=== PATIENT | female | born 1935 | race Caucasian/White ===

== ENCOUNTER 2019-05-16 04:23 | Inpatient (IN) ==
--- NOTE | 2019-05-16 04:43 | PROVIDER DOCUMENTATION ---
HPI-Abdominal Pain/GI Problem - General Chief Complaint: Abdominal Pain Stated Complaint: ABD PAIN Time Seen by Provider: 05/16/19 04:41 Source: patient Allergies/Adverse Reactions: Patient Allergies Allergy/AdvReac Type Severity Reaction Status Date / Time amlodipine [From Norvasc] Allergy Unknown Verified 05/16/19 04:45 diazepam [From Valium] Allergy Unknown Verified 05/16/19 04:45 doxycycline Allergy Unknown Verified 05/16/19 04:45 duloxetine [From Cymbalta] Allergy Unknown Verified 05/16/19 04:45 Sulfa (Sulfonamide Allergy Unknown Verified 05/16/19 04:45 Antibiotics) ciprofloxacin [From Cipro] AdvReac VOMITING Verified 05/16/19 04:45 Home Medications: Home Medication List Medication Instructions Recorded Confirmed Last Taken Type Aspirin 81 mg PO QHS 05/29/18 05/16/19 Unknown History Bisacodyl [Dulcolax] 10 mg PO DAILY PRN PRN 05/29/18 05/16/19 Unknown History Docusate Sodium [Colace] 100 mg PO DAILY PRN 05/29/18 05/16/19 Unknown History Hydrocodone Bit/Acetaminophen 1 each PO TID PRN PRN 05/29/18 05/16/19 Unknown History [Hydrocodon-Acetaminophen 5-325] Magnesium Amino Acid Chelate 0 mg PO DAILY 05/29/18 05/16/19 Unknown History [Magnesium] Menthol [Biofreeze] 118 ml TP PRN PRN 05/29/18 05/16/19 Unknown History Metoprolol Succinate E.r. [Toprol 25 mg PO QHS 05/29/18 05/16/19 Unknown History Xl] Multivitamin [Multivitamins] 1 each PO DAILY 05/29/18 05/16/19 Unknown History Nitrofurantoin Macrocrystal 50 mg PO HS PRN 05/29/18 05/16/19 Unknown History [Macrodantin] Omeprazole [Prilosec] 20 mg PO DAILY 05/29/18 05/16/19 Unknown History Potassium Gluconate [Potassium] 200 mg PO HS 05/29/18 05/16/19 Unknown History Phenazopyridine HCl [Azo Urinary 99.5 mg PO Q8H PRN 05/16/19 05/16/19 Unknown History Pain Relief] - History of Present Illness-ABD Nature of Presenting Problems: Presents to the with complaints of RLQ abd pain. She states about 2 weeks ago she was told that she had diverticulitis. She was given cipro and flagyl and took it for about 8 days but stopped 3 days ago because it was making her nause ous. She states that the LUQ pain she had when she was told she had diverticulitis disappeared but tongith she had a sudden onset of RLQ abdominal pain that is stabbing and "rebound". She endorses some non bloody diarrhea and some subjective fevers but states she did not check her temp. She endorses some nausea but states hshe has had the surgery where she cannot vomit. She tried taking a Hydrocodone for pain but that didnt help. She denies any dysuria. She states that her friend was also recently sick with the flu she thinks. Denies any othe rsick contacts. Review of Systems - Adult - REVIEW OF SYSTEMS - ADULT Constitutional: reports: see HPI, chills, fever Eyes: reports: no symptoms reported Ears, Nose, Mouth & Throat: reports: no symptoms reported Cardiovascular: reports: no symptoms reported Respiratory: reports: no symptoms reported Gastrointestinal: reports: see HPI, abdominal pain, diarrhea, nausea. denies: constipation, vomiting Genitourinary: reports: no symptoms reported Musculoskeletal: reports: no symptoms reported Integumentary: reports: no symptoms reported Neurological: reports: no symptoms reported Psychiatric: reports: no symptoms reported Endocrine: reports: no symptoms reported Hematologic/Lymphatic: reports: no symptoms reported Allergic/Immunologic: reports: no symptoms reported All Other Systems: Reviewed and Negative Past History - Adult - PAST MEDICAL HISTORY-ADULT Review of Records: reports: Old Records Reviewed Physical Exam-General - PHYSICAL EXAM-ADULT Initial Vital Signs Reviewed: Yes - CONSTITUTIONAL General Appearance: appears well, alert, no apparent distress, anxious - EYES Eyes: PERRL/EOMI - HEAD, EARS, NOSE, MOUTH & THROAT HENMT: normocephalic/atraumatic, moist mucous membranes - NECK Neck: non-tender, full range of motion, supple, normal inspection - RESPIRATORY Respiratory: chest non-tender, lungs clear, normal breath sounds, no respiratory distress, no accessory muscle use, pain on inspiration - CARDIOVASCULAR Cardiovascular: normal peripheral pulses, regular rate, rhythm, no murmur - GASTROINTESTINAL (ABDOMEN) Abdominal Exam: normal bowel sounds, soft, tenderness (right abdominal pain) - MUSCULOSKELETAL Back Exam: normal inspection, no CVA tenderness, no vertebral tenderness Extremity: normal range of motion, non-tender, normal inspection - SKIN Integumentary: normal color, warm/dry - NEUROLOGIC Neurologic: grossly normal - PSYCHIATRIC Psych/Mental Status: normal mood/affect, oriented x 3 Progress - PLAN OF CARE/RESULTS Progress/Plan/Lab Results: Vital Signs - 8 hr 05/16/19 04:30 Temperature 98.2 F Pulse Rate 78 Respiratory Rate 16 Blood Pressure 149/75 O2 Sat by Pulse Oximetry 96 Orders Category Date Time Status CT ABD/PELVIS W/IV CONT ONLY [CT] Stat Exams 05/16/19 04:41 Ordered CBC WITH ELECTRONIC DIFF [HEME] Stat Lab 05/16/19 04:41 Uncollected COMPREHENSIVE METABOLIC PANEL [CHEM] Stat Lab 05/16/19 04:41 Uncollected LIPASE [CHEM] Stat Lab 05/16/19 04:41 Uncollected URINALYSIS W/POSS RFLX CULT [URINALYSIS] Stat Lab 05/16/19 04:41 Uncollected 0653: Dr Bryant in the ED to see patient. Accepts patient for admission. Further orders to be placed by him. Result Diagrams: 05/16/19 04:35 05/16/19 04:35 - CT/MRI 1 CT Study: Abdomen (Acute appendicitis) - CONSULTS/PCP/HOSPITALIST Notification #1 *Consult/PCP/Hospitalist*: Dr Bryant Time Discussed: 06:29 Consult Disposition: Will see in ED Departure - Departure Date of Disposition Decision: 05/16/19 Time of Disposition Decision: 06:53 DIAGNOSIS: Acute appendicitis Qualifiers: Acute appendicitis type: unspecified acute appendicitis type Qualified Code(s): K35.80 - Unspecified acute appendicitis Disposition: ADMITTED INPATIENT 09 Certified Medical Emergency: Emergent Condition: Stable Referrals and Follow-Ups: Taz Sweeney MD [Primary Care Provider] - - Critical Care Note This patient required my direct & personal management of CC.: No Attestation - Physician/ LA[place] Attestation Patient care was provided by Advanced Practice Provider:: No The physician spent face to face time with patient:: Yes Advanced Practice Provider documentation review:: Supervising physician onsite and consulted in the evaluation and care of this patient. The physician did have a face to face encounter with the patient.
[2019-05-16] MEDS ORDERED: ZOFRAN IV ONE (04:48)
[2019-05-16] MEDS ORDERED: MORPHINE IV ONE (04:48)
[2019-05-16] MEDS ORDERED: NS 1,000 ML IV ONE (04:49)
[2019-05-16 04:56] LABS: BASO# 0.02 X1000 (0.0-0.2); BASO% 0.1 % (0.0-0.8); EOS# 0.01 X1000 (0.0-0.7); EOS% 0.1 % (0.0-10.0); HEMATOCRIT 45.4 % (37.0-47.0); HEMOGLOBIN 15.6 g/dL (12.0-16.0); IMM GRAN# 0.02 X1000 (0.0-0.04); IMM GRAN% 0.1 % (0.0-0.5); LYMPH# 1.29 X1000 (1.2-3.4); LYMPH% 8.8 % (20.5-51.1); MCH 32.2 PG (27-31); MCHC 34.4 g/dL (33-37); MCV 93.8 FL (81-99); MONO# 0.91 X1000 (0.11-0.59); MONO% 6.2 % (1.7-9.3); NEUT# 12.35 X1000 (1.4-6.5); NEUT% 84.7 % (42.2-75.2); PLT 193 X1000 (130-400); RBC 4.84 XMIL (4.2-5.4); RDW 12.6 % (11.5-14.5)
[2019-05-16 05:16] LABS: ALB/GLOB RATIO 1.2; ALBUMIN 4.3 g/dL (3.5-5.0); CALCIUM 10.2 mg/dL (8.8-10.2); CREATININE 1.2 mg/dL (0.5-0.9); TOTAL BILIRUBIN 1.34 mg/dL (0.20-1.00); TOTAL PROTEIN 7.8 g/dL (6.3-8.3)
[2019-05-16 05:29] LABS: URINE SOURCE CLEAN CATCH
[2019-05-16 05:32] LABS: BILIRUBIN URINE NEGATIVE (NEGATIVE); BLOOD URINE TRACE (NEGATIVE); COLOR YELLOW; GLUCOSE URINE NEGATIVE (NEGATIVE); KETONE URINE 10 mg/dL (NEGATIVE); LEUKOCYTES URINE TRACE (NEGATIVE); NITRITE URINE NEGATIVE (NEGATIVE); PROTEIN URINE TRACE mg/dL (NEGATIVE); SP GRAVITY URINE 1.015; TURBIDITY URINE HAZY (CLEAR); UROBILINOGEN URINE NORMAL (NORMAL)
[2019-05-16 05:33] LABS: UR EPITHELIAL CELLS >10 /HPF (<10); URINE BACTERIA NEGATIVE /HPF; URINE RBC <10 /HPF (<10); URINE WBC <10 /HPF (<10)
--- NOTE | 2019-05-16 06:28 | Diag Imaging Result Doc PS360 ---
CT ABD/PELVIS W/IV CONT ONLY - 05/16/2019 INDICATION: abd pain COMPARISON: None FINDINGS: The lung bases are clear and the heart size is normal. There is significant patient motion artifact. There are a couple appendicoliths proximally within the vermiform appendix. The vermiform appendix is dilated and fluid-filled measuring about 11 mm in caliber. There is also surrounding inflammatory stranding. No bowel obstruction. No drainable fluid collections. There are several diverticula of the sigmoid colon. The bowels otherwise appear grossly normal. There is a tiny fat-containing ventral hernia in the anterior pelvic body wall, in the midline. Uterus is absent. Urinary bladder and rectum are normal. Small hiatal hernia. Abdominal organs all appear normal. IMPRESSION: Acute appendicitis. This report was discussed with Dr. Hawk on 05/16/2019 at 6:24 AM and was readback. This exam was performed using automated exposure control, adjustment of mA or kV according to patient size, and/or use of iterative reconstruction technique Electronically signed by Prashant Kelsey 05/16/2019 6:25 AM
[2019-05-16] MEDS ORDERED: ZOSYN 4.5 GM in NS 100 ML IV ONE (06:30)
[2019-05-16] MEDS ORDERED: ZOFRAN IV PRN (07:04)
--- NOTE | 2019-05-16 07:18 | HISTORY AND PHYSICAL ---
CHIEF COMPLAINT: Right lower quadrant pain and tenderness. HISTORY OF PRESENT ILLNESS: This is a pleasant 84-year-old female who was complaining of left upper quadrant pain about 2 weeks ago and talked with Dr. Sweeney and was placed on Cipro and Flagyl. She stopped that antibiotic after about 8 days because of nausea. Yesterday afternoon her left upper quadrant pain had resolved, but she has been noticed shift to the right lower quadrant, and she sought medical attention early this morning. She says she has had some fever and night even though it is not documented. She has had some nausea. PAST MEDICAL HISTORY: Other medical problems include hypertension. She does occasionally have tachycardia. I am not certain where the supraventricular tachycardia or atrial fibrillation. She also reports a history of cystitis. PAST SURGICAL HISTORY: Previous surgery includes a left knee replacement, hysterectomy, and hiatal hernia surgery. HOME MEDICATIONS: Her medications at home include: Aspirin 81 mg daily, Dulcolax 10 mg p.r.n., Colace as needed, [place] 5 as needed, Toprol-XL 25 mg every night at bedtime, multivitamins daily, Macrodantin 50 mg at bedtime p.r.n., Prilosec 20 mg daily, potassium gluconate 200 mg p.o. at bedtime, Azo urinary every 8 hours p.r.n. ALLERGIES: She has an intolerance to amlodipine, Diazepam, doxycycline, Cymbalta, sulfa antibiotics, and Cipro. SOCIAL HISTORY: She is . Denies smoking or alcohol use. Denies illicit drug use. FAMILY HISTORY: Noncontributory. REVIEW OF SYSTEMS: Is reviewed and except as noted above, she is negative in the other 10 subsystems. PHYSICAL EXAMINATION: VITAL SIGNS: She is afebrile. Heart rate 78, blood pressure 149/75, respiratory rate 16. NECK: No cervical adenopathy. LUNGS: Bilateral breath sounds are present. HEART: Regular rate and rhythm. ABDOMEN: Soft. She is tender in the right lower quadrant. EXTREMITIES: She has no peripheral edema. I do not palpate pedal pulses. She does have very flat feet. NEUROLOGIC: She is awake, alert, and oriented. DIAGNOSTIC DATA: White count is 14,600, hemoglobin 15.6. BUN 14, creatinine 1.2. CT scan shows acute appendicitis. ASSESSMENT: Acute appendicitis. PLAN: Laparoscopic appendectomy if possible. I discussed with her the possibility of needing to do her open because of her previous surgery. She understands that. cc: Ethan Bryant MD
[2019-05-16 07:41] LABS: INR 1.03; PROTIME 13.7 Seconds (11.0-16.0)
[2019-05-16 07:42] LABS: PTT 30.2 Seconds (22.3-41.8)
[2019-05-16] MEDS ORDERED: MACRODANTIN PO PRN (08:14)
[2019-05-16] MEDS ORDERED: [UNRECOGNIZED DRUG - OTHER] PO PRN (08:14)
[2019-05-16] MEDS: MORPHINE IV PRN ×2 (09:39→16:13)
--- NOTE | 2019-05-16 12:34 | EKG Report ---
Test Performed on : 05/16/2019 12:25:28 PM Test Reason : preop Blood Pressure : / mmHG Vent. Rate : 068 BPM Atrial Rate : 068 BPM P-R Int : 204 ms QRS Dur : 116 ms QT Int : 448 ms P-R-T Axes : 050 -48 016 degrees QTc Int : 476 ms Sinus rhythm. with premature atrial complexes. Left anterior fascicular block Left ventricular hypertrophy with QRS widening Nonspecific T wave abnormality Prolonged QT Abnormal ECG When compared with ECG of 25-OCT-2018 23:49, premature atrial complexes. are now present Nonspecific T wave abnormality now evident in Anterior leads QT has lengthened Confirmed by Ronny FAITH, Norberto Finnegan ([id number]) on 05/17/2019 2:34:57 PM
[2019-05-16] MEDS: ZOSYN 3.375 GM in NS 50 ML IV SCH ×2 (15:29→19:57)
[2019-05-16] MEDS ORDERED: MARCAINE 0.25% PF ONE (16:28)
[2019-05-16] MEDS ORDERED: LR 1,000 ML ONE (16:28)
[2019-05-16] MEDS ORDERED: DIPRIVAN 1% ONE (16:33)
[2019-05-16] MEDS ORDERED: FENTANYL ONE (16:34)
[2019-05-16] MEDS ORDERED: SODIUM CHLORIDE 0.9% 10 ML ONE (17:40)
[2019-05-16] MEDS ORDERED: ROBINUL ONE (17:40)
[2019-05-16] MEDS ORDERED: NEOSTIGMINE ONE (17:40)
[2019-05-16] MEDS ORDERED: OFIRMEV 1000 MG/ISOTONIC SOLN 1,000 MG/100 ML BOTTLE ONE (17:40)
[2019-05-16] MEDS ORDERED: ZOFRAN ONE (17:40)
[2019-05-16] MEDS ORDERED: PITRESSIN ONE (17:40)
[2019-05-16] MEDS ORDERED: ZEMURON ONE (17:40)
[2019-05-16] MEDS ORDERED: XYLOCAINE-MPF 2% ONE (17:40)
[2019-05-16] MEDS ORDERED: EPHEDRINE ONE (17:40)
[2019-05-16] MEDS ORDERED: QUELICIN (DOSE) ONE (17:40)
[2019-05-16] MEDS ORDERED: DECADRON ONE (17:40)
[2019-05-16] MEDS: DILAUDID ONE ×4 (18:23→18:43)
[2019-05-16] MEDS ORDERED: SYSTANE EYE DROPS OPH PRN (18:45)
[2019-05-16] MEDS ORDERED: NORCO-7.5 PO PRN (19:33)
[2019-05-16] MEDS ORDERED: TOPROL XL PO SCH (21:00)
--- NOTE | 2019-05-16 22:24 | OPERATIVE NOTE ---
PROCEDURE DATE: 05/16/2019 PROCEDURE PERFORMED: Laparoscopic appendectomy. SURGEON: Ethan Bryant MD. MAMMOGRAPHY TECHNICIAN: Dr. Hays. PREOPERATIVE DIAGNOSIS: Acute appendicitis. POSTOPERATIVE DIAGNOSIS: Acute appendicitis. DESCRIPTION OF PROCEDURE: After satisfactory general endotracheal anesthesia, the abdomen was prepped and draped in a sterile fashion. We anesthetized the skin above the umbilicus with 0.25 Marcaine. After anesthesia, we made a small vertical incision and introduced a 5 trocar, and entered the abdominal cavity using the Optiview technique. We insufflated through this trocar. Under direct visualization, I used a 12 trocar in the lower hypogastrium, and a 5 trocar in the mid hypogastrium. We placed the patient in Trendelenburg and turned her to the left. We looked at the cecum. We identified the area of the appendix. There was exudate noted consistent with acute appendicitis. We then used a padded grasper and grasped the mesoappendix, the appendix from the inflammatory attachments to the pelvic wall. We then divided the mesoappendix with the LigaSure. When we reached the base the appendix, we introduced the Endo-GLORIA roche cartridge 30 mm long, stapled and divided the base the appendix. We placed the appendix within a Pleatman pouch and delivered out of the abdominal cavity. We looked back. Hemostasis was satisfactory. No other abnormalities were identified. We irrigated, aspirated and aspirated what fluid we irrigated. We then desufflated, flattened the patient. We removed the trocars. I used 2-0 Polysorb fascial stitch in the lower hypogastric trocar site. We then closed the skin at each incision with 4-0 Polysorb subcuticular stitches. Sterile OpSites were applied. She tolerated it well and was sent to the recovery room in satisfactory condition. cc: Ethan Bryant MD
[2019-05-17] MEDS: MORPHINE IV PRN ×2 (00:15→06:10)
[2019-05-17] MEDS ORDERED: MAALOX PLUS LIQUID PO PRN (00:20)
[2019-05-17] MEDS: ZOSYN 3.375 GM in NS 50 ML IV SCH ×2 (02:39→08:56)
[2019-05-17] MEDS ORDERED: LR 1,000 ML IV SCH (04:15)
--- NOTE | 2019-05-17 12:22 | GENERAL SURGERY PROGRESS NOTE ---
DATE: 05/17/2019 SUBJECTIVE: Ms. Mcgraw is feeling better. She is afebrile. Heart rate 63. Blood pressure 119/63. She has not urinated over night so her IV fluids have been increased by my partner. However, she is comfortable this morning and feels good she has had a little bit of burping, has passed some flatus. PLAN: To continue liquids and will check back later today and see if she is ready for discharge. cc: Ethan Bryant MD
[2019-05-17 15:06] VITALS: BP 127/57
--- NOTE | 2019-05-17 16:39 | EKG Report ---
Test Performed on : 05/16/2019 6:17:05 PM Test Reason : CP Blood Pressure : / mmHG Vent. Rate : 070 BPM Atrial Rate : 070 BPM P-R Int : 178 ms QRS Dur : 116 ms QT Int : 508 ms P-R-T Axes : 035 -44 019 degrees QTc Int : 548 ms Normal sinus rhythm. Left axis deviation Left ventricular hypertrophy with QRS widening Possible Lateral infarct (cited on or before 16-MAY-2019) Abnormal ECG When compared with ECG of 16-MAY-2019 18:16, (Unconfirmed) QT has lengthened Unconfirmed Result
--- NOTE | 2019-05-17 23:18 | GENERAL SURGERY PROGRESS NOTE ---
DATE: 05/17/2019 SUBJECTIVE: She is doing better this afternoon. She has urinated satisfactorily. She has taken liquids without problem. She feels good. She wants to go home. PLAN: We will allow her to go home. She will use her [place] 5 at home that she already has for discomfort. She will return to see me in the office in a week. Wound care and activity were discussed. cc: Ethan Bryant MD
== END 2019-05-17 15:57 | disposition home or self-care (01) | DRG 343 ==
LOC: ED 04:23 → 4N 04:23
PROVIDERS: ADMIT Surgery; ATTEND Surgery

== ENCOUNTER 2019-06-06 19:59 | Observation (INO) ==
--- NOTE | 2019-06-06 20:25 | Diag Imaging Result Doc PS360 ---
EXAM: CHEST-1 VIEW INDICATION: cp TECHNIQUE: One view COMPARISON: 10/26/2018 FINDINGS: There is evidence of prior granulomatous disease, stable. The lungs are grossly clear. There is no discrete pleural fluid collection or pneumothorax. The cardiomediastinal silhouette and central vasculature are grossly unremarkable. IMPRESSION: No evidence of acute pathology by plain radiograph. Electronically signed by Jose William 06/06/2019 8:23 PM
[2019-06-06 21:13] LABS: BASO# 0.03 X1000 (0.0-0.2); BASO% 0.5 % (0.0-0.8); EOS# 0.11 X1000 (0.0-0.7); EOS% 1.7 % (0.0-10.0); HEMATOCRIT 40.4 % (37.0-47.0); HEMOGLOBIN 13.4 g/dL (12.0-16.0); IMM GRAN# 0.02 X1000 (0.0-0.04); IMM GRAN% 0.3 % (0.0-0.5); LYMPH# 1.25 X1000 (1.2-3.4); LYMPH% 19.5 % (20.5-51.1); MCH 32.1 PG (27-31); MCHC 33.2 g/dL (33-37); MCV 96.7 FL (81-99); MONO# 0.55 X1000 (0.11-0.59); MONO% 8.6 % (1.7-9.3); MPV 10.8 FL (7.4-10.4); NEUT# 4.45 X1000 (1.4-6.5); NEUT% 69.4 % (42.2-75.2); PLT 137 X1000 (130-400); RBC 4.18 XMIL (4.2-5.4); RDW 13.4 % (11.5-14.5); WBC 6.41 X1000 (4.8-10.8)
[2019-06-06 21:24] LABS: ALB/GLOB RATIO 1.4; ALBUMIN 3.8 g/dL (3.5-5.0); CALCIUM 9.2 mg/dL (8.8-10.2); CREATININE 1.4 mg/dL (0.5-0.9); MAGNESIUM 2.3 mg/dL (1.5-2.7); POTASSIUM 4.7 mmol/L (3.5-5.1); TOTAL BILIRUBIN 0.33 mg/dL (0.20-1.00); TOTAL PROTEIN 6.5 g/dL (6.3-8.3)
[2019-06-06 21:32] LABS: URINE SOURCE CLEAN CATCH
[2019-06-06 21:37] LABS: BILIRUBIN URINE NEGATIVE (NEGATIVE); BLOOD URINE NEGATIVE (NEGATIVE); COLOR YELLOW; GLUCOSE URINE NEGATIVE (NEGATIVE); KETONE URINE NEGATIVE (NEGATIVE); LEUKOCYTES URINE NEGATIVE (NEGATIVE); NITRITE URINE NEGATIVE (NEGATIVE); PH URINE 7.5; PROTEIN URINE NEGATIVE (NEGATIVE); SP GRAVITY URINE 1.013; TURBIDITY URINE CLEAR (CLEAR); UR EPITHELIAL CELLS <10 /HPF (<10); URINE BACTERIA NEGATIVE /HPF; URINE RBC <10 /HPF (<10); URINE WBC <10 /HPF (<10); UROBILINOGEN URINE NORMAL (NORMAL)
--- NOTE | 2019-06-06 22:42 | PROVIDER DOCUMENTATION ---
This chart was entered by Araceli Jensen Scribe, acting as scribe for Dianne Sheridan MD. HPI-Cardiac General - General Chief Complaint: Palpitations Stated Complaint: post svt Time Seen by Provider: 06/06/19 20:04 Source: patient Allergies/Adverse Reactions: Patient Allergies Allergy/AdvReac Type Severity Reaction Status Date / Time amlodipine [From Norvasc] Allergy Unknown Verified 06/06/19 22:45 diazepam [From Valium] Allergy Unknown Verified 06/06/19 22:45 doxycycline Allergy Unknown Verified 06/06/19 22:45 duloxetine [From Cymbalta] Allergy Unknown Verified 06/06/19 22:45 Sulfa (Sulfonamide Allergy Unknown Verified 06/06/19 22:45 Antibiotics) ciprofloxacin [From Cipro] AdvReac VOMITING Verified 06/06/19 22:45 Home Medications: Home Medication List Medication Instructions Recorded Confirmed Last Taken Type Aspirin 81 mg PO QHS 05/29/18 06/06/19 06/06/19 19:00 History Bisacodyl [Dulcolax] 10 mg PO DAILY PRN PRN 05/29/18 06/06/19 06/04/19 21:00 History Hydrocodone Bit/Acetaminophen 1 each PO TID PRN PRN 05/29/18 06/06/19 06/06/19 07:00 History [Hydrocodon-Acetaminophen 5-325] Magnesium Amino Acid Chelate 27 mg PO DAILY 05/29/18 06/06/19 06/05/19 20:00 History [Magnesium] Menthol [Biofreeze] 118 ml TP PRN PRN 05/29/18 06/06/19 06/05/19 20:00 History Metoprolol Succinate E.r. [Toprol 25 mg PO QHS 05/29/18 06/06/19 06/06/19 19:00 History Xl] Multivitamin [Multivitamins] 1 each PO DAILY 05/29/18 06/06/19 06/05/19 20:00 History Omeprazole [Prilosec] 20 mg PO DAILY 05/29/18 06/06/19 06/04/19 07:00 History Potassium Gluconate [Potassium] 200 mg PO HS 05/29/18 06/06/19 06/05/19 20:00 History Levothyroxine [Synthroid] 75 mcg PO DAILY 06/06/19 06/06/19 06/06/19 06:00 History Mag Hydrox/Aluminum Hyd/Simeth 355 ml PO DAILY PRN 06/06/19 06/06/19 06/06/19 19:00 History [Mylanta Maximum Strength Liq] Promethazine [Phenergan] 25 mg PO DAILY PRN 06/06/19 06/06/19 06/05/19 20:00 History - History of Present Illness-Cardiac Nature of Presenting Problem: Pt is a 84 yof who presents to the ED with a cc of nausea, palpitation, and abd soreness. Pt states that her symptoms began at 5:00pm after eating a "breakfast dinner" states that her HR increased to 200 afterwards. reports hx of similar issues. reports taking aspirin 81mg x 4. denies any sob cough fever or dizziness. Severity in ED: mild Onset/Duration: 4-6 hours ago Timing: intermittent Context/Activities at Onset: reports: possible bad food Modifying Factors: improves with: nothing Palpitation Quality: fast/pounding heart beat Nitro Today/Relief: reports: no nitro taken today Aspirin Treatment Today: reports: 81 mg x 4 Prior Chest Pain/Cardiac Workup: reports: no prior chest pain Associated Symptoms: reports: abdominal pain, nausea. denies: shortness of breath Similar Symptoms Previously?: Yes Recently Seen Here or By Another Healthcare Provider: Yes Review of Systems - Adult - REVIEW OF SYSTEMS - ADULT Constitutional: reports: see HPI Eyes: reports: no symptoms reported Ears, Nose, Mouth & Throat: reports: no symptoms reported Cardiovascular: reports: see HPI, palpitations Respiratory: reports: see HPI. denies: cough, shortness of breath, wheezing Gastrointestinal: reports: see HPI, abdominal pain (appendectomy 2 wks ago), nausea Genitourinary: reports: no symptoms reported Musculoskeletal: reports: see HPI, muscle weakness (right side), neck pain Integumentary: reports: no symptoms reported Neurological: reports: no symptoms reported Psychiatric: reports: no symptoms reported Endocrine: reports: no symptoms reported Hematologic/Lymphatic: reports: no symptoms reported Allergic/Immunologic: reports: no symptoms reported All Other Systems: Reviewed and Negative Past History - Adult - PAST MEDICAL HISTORY-ADULT Review of Records: reports: Old Records Reviewed, Nursing Assessment Review, Medications Reviewed, Social history reviewed & non-contributory. Major Childhood Illnesses: reports: denies history Cardiovascular: reports: denies history Respiratory: reports: denies history Gastrointestinal: reports: denies history Obstetrical/Gynecological: reports: denies history Genitourinary: reports: denies history Musculoskeletal: reports: denies history Neurological: reports: denies history Endocrine/Immune: reports: denies history Other Conditions: reports: denies history Physical Exam-General - PHYSICAL EXAM-ADULT Initial Vital Signs Reviewed: Yes - CONSTITUTIONAL General Appearance: alert, no apparent distress - EYES Eyes: pink conjunctivae - HEAD, EARS, NOSE, MOUTH & THROAT HENMT: normocephalic/atraumatic, moist mucous membranes - NECK Neck: non-tender, full range of motion, normal inspection - RESPIRATORY Respiratory: chest non-tender, lungs clear, normal breath sounds. negative: crackles, rhonchi - CARDIOVASCULAR Cardiovascular: normal peripheral pulses, regular rate, rhythm - GASTROINTESTINAL (ABDOMEN) Abdominal Exam: normal bowel sounds, soft, tenderness (mild abd tenderness). n egative: non tender - MUSCULOSKELETAL Back Exam: normal inspection Extremity: normal range of motion, non-tender, normal inspection, no pedal edema , no calf tenderness - SKIN Integumentary: normal color, normal turgor, warm/dry - NEUROLOGIC Neurologic: grossly normal - PSYCHIATRIC Psych/Mental Status: normal mood/affect, normal thought content, normal thought process, oriented x 3 - HEART Score HEART Score: History: Slightly Suspicious HEART Score: ECG: Non-Specific Repolarization Disturbance/LBBB/PM HEART Score: Age: > or = 65 Years HEART Score: Risk Factors for Atherosclerotic Disease: 1 or 2 Risk Factors HEART Score: Troponin: < or = Normal Limit Total HEART Score:: 4 Progress - PLAN OF CARE/RESULTS Progress/Plan/Lab Results: Vital Signs - 8 hr 06/06/19 23:22 Pulse Rate 44 L Laboratory Results - last 24 hr 06/06/19 06/06/19 06/06/19 01:37 01:37 20:51 WBC 6.41 RBC 4.18 L Hgb 13.4 Hct 40.4 MCV 96.7 MCH 32.1 H MCHC 33.2 RDW Std Deviation 13.4 Plt Count 137 MPV 10.8 H Immature Gran % (Auto) 0.3 Neut % (Auto) 69.4 Lymph % (Auto) 19.5 L [place] % (Auto) 8.6 Eos % (Auto) 1.7 Baso % (Auto) 0.5 Immature Gran # (Auto) 0.02 Neut # (Auto) 4.45 Lymph # (Auto) 1.25 [place] # (Auto) 0.55 Eos # (Auto) 0.11 Baso # (Auto) 0.03 D-Dimer, Quantitative Sodium Potassium Chloride Carbon Dioxide Anion Gap BUN Creatinine Estimated GFR/1.73 m2 BUN/Creatinine Ratio Glucose Calculated Osmolality Calcium Magnesium Total Bilirubin AST ALT Alkaline Phosphatase Creatine Kinase 28 Troponin T High Sens 57 H [id number] Pept Total Protein Albumin Globulin Albumin/Globulin Ratio Urine Source Urine Color Urine Turbidity Urine pH Ur Specific [place] Urine Protein Ur Glucose (Stick) Ur Ketones (Stick) Urine Blood Urine Nitrite Urine Bilirubin Urobilinogen Dipstick Urine Leukocytes Urine WBC (Auto) Urine RBC (Auto) U Epithel Cells (Auto) Urine Bacteria (Auto) 06/06/19 06/06/19 06/06/19 20:51 20:51 20:51 WBC RBC Hgb Hct MCV MCH MCHC RDW Std Deviation Plt Count MPV Immature Gran % (Auto) Neut % (Auto) Lymph % (Auto) [place] % (Auto) Eos % (Auto) Baso % (Auto) Immature Gran # (Auto) Neut # (Auto) Lymph # (Auto) [place] # (Auto) Eos # (Auto) Baso # (Auto) D-Dimer, Quantitative 0.38 Sodium 140 Potassium 4.7 Chloride 103 Carbon Dioxide 29 Anion Gap 8 BUN 25 H Creatinine 1.4 H Estimated GFR/1.73 m2 36 BUN/Creatinine Ratio 18 Glucose 127 H Calculated Osmolality 285 Calcium 9.2 Magnesium 2.3 Total Bilirubin 0.33 AST 23 ALT 15 Alkaline Phosphatase 90 Creatine Kinase 26 Troponin T High Sens [id number]-Dnqhafuyfah Pept 1335 H Total Protein 6.5 Albumin 3.8 Globulin 2.7 Albumin/Globulin Ratio 1.4 Urine Source Urine Color Urine Turbidity Urine pH Ur Specific [place] Urine Protein Ur Glucose (Stick) Ur Ketones (Stick) Urine Blood Urine Nitrite Urine Bilirubin Urobilinogen Dipstick Urine Leukocytes Urine WBC (Auto) Urine RBC (Auto) U Epithel Cells (Auto) Urine Bacteria (Auto) 06/06/19 06/06/19 20:51 21:20 WBC RBC Hgb Hct MCV MCH MCHC RDW Std Deviation Plt Count MPV Immature Gran % (Auto) Neut % (Auto) Lymph % (Auto) [place] % (Auto) Eos % (Auto) Baso % (Auto) Immature Gran # (Auto) Neut # (Auto) Lymph # (Auto) [place] # (Auto) Eos # (Auto) Baso # (Auto) D-Dimer, Quantitative Sodium Potassium Chloride Carbon Dioxide Anion Gap BUN Creatinine Estimated GFR/1.73 m2 BUN/Creatinine Ratio Glucose Calculated Osmolality Calcium Magnesium Total Bilirubin AST ALT Alkaline Phosphatase Creatine Kinase Troponin T High Sens 31 H [id number]-Febjfmfhsba Pept Total Protein Albumin Globulin Albumin/Globulin Ratio Urine Source CLEAN CATCH Urine Color YELLOW Urine Turbidity CLEAR Urine pH 7.5 Ur Specific [place] 1.013 Urine Protein NEGATIVE Ur Glucose (Stick) NEGATIVE Ur Ketones (Stick) NEGATIVE Urine Blood NEGATIVE Urine Nitrite NEGATIVE Urine Bilirubin NEGATIVE Urobilinogen Dipstick NORMAL Urine Leukocytes NEGATIVE Urine WBC (Auto) <10 Urine RBC (Auto) <10 U Epithel Cells (Auto) <10 Urine Bacteria (Auto) NEGATIVE Orders Category Date Time Status Admit - [facility] Routine AdmDCTranf 06/06/19 23:22 Active Activity - Up with Assistance ORDERED Care 06/06/19 23:22 Active Intake and Output-Strict ORDERED Care 06/06/19 23:22 Active Nursing- MD Consult Request ROUTINE Care 06/06/19 23:23 Active Vital Signs Order Q 4-HR ASSESS Care 06/06/19 23:23 Completed Z-Document. for Tele Applied ORDERED Care 06/06/19 23:22 Completed Physician/Provider Consults Routine Cons 06/07/19 07:00 Ordered Heart Healthy Diet Diet 06/06/19 23:23 Active CHEST-1 VIEW [RAD] Stat Exams 06/06/19 20:07 Completed CBC WITH ELECTRONIC DIFF [HEME] Stat Lab 06/06/19 20:51 Completed CK PROFILE [SP CHEM] Q8H Lab 06/06/19 01:37 Completed CK PROFILE [SP CHEM] Q8H Lab 06/07/19 07:30 Ordered CK PROFILE [SP CHEM] Stat Lab 06/06/19 20:51 Completed COMPREHENSIVE METABOLIC PANEL [CHEM] Routine Lab 06/07/19 05:35 Received COMPREHENSIVE METABOLIC PANEL [CHEM] Stat Lab 06/06/19 20:51 Completed D-DIMER [COAG] Stat Lab 06/06/19 20:51 Completed MAGNESIUM [CHEM] Routine Lab 06/07/19 05:35 Received MAGNESIUM [CHEM] Stat Lab 06/06/19 20:51 Completed PRO B-NATRIURETIC PEPTIDE Routine Lab 06/07/19 05:35 Received PRO B-NATRIURETIC PEPTIDE Stat Lab 06/06/19 20:51 Completed TROPONIN T HIGH SENSITIVITY Q8H Lab 06/06/19 01:37 Completed TROPONIN T HIGH SENSITIVITY Q8H Lab 06/07/19 07:30 Ordered TROPONIN T HIGH SENSITIVITY Stat Lab 06/06/19 20:51 Completed TSH Routine Lab 06/07/19 05:35 Received UA NIMS W/REFLEX CULT [URINALYSIS] Stat Lab 06/06/19 21:20 Completed Acetaminophen [Tylenol] Med 06/06/19 23:22 Active 650 mg PO Q6H PRN PRN Aspirin Med 06/07/19 21:00 Active 81 mg PO QHS Bisacodyl [Dulcolax] Med 06/06/19 23:25 Active 10 mg PO DAILY PRN PRN Hydrocodone/APAP 5 mg/325 mg [[place]-5] Med 06/06/19 23:25 Active 1 each PO TID PRN PRN Levothyroxine [Synthroid] Med 06/07/19 07:00 Active 75 microgm PO DAILY@0700 Mag Hydrox/Aluminum Hyd/Simeth [Mylanta Maximum Med 06/06/19 23:25 Pending Strength Liq] 355 ml PO DAILY PRN Magnesium Amino Acid Chelate [Magnesium] Med 06/07/19 09:00 Pending 27 mg PO DAILY Metoprolol Succinate E.r. [Toprol Xl] Med 06/07/19 21:00 Active 25 mg PO QHS Multivitamins/Minerals [Centrum Silver] Med 06/07/19 09:00 Active 1 each PO DAILY Omeprazole [Prilosec] Med 06/07/19 07:00 Active 20 mg PO DAILY@0700 Ondansetron [Zofran] Med 06/06/19 23:22 Active 4 mg IV Q4H PRN PRN Patient's Own Med Med 06/07/19 21:00 Active 0 each PO HS Promethazine [Phenergan] Med 06/06/19 23:25 Active 25 mg PO DAILY PRN PRN Telemetry [OM.EQ] Routine Oth 06/06/19 23:22 Active EKG [EKG] Stat Ther 06/06/19 20:09 Ordered Echo Spec/Color Doppler Routine Ther 06/07/19 06:00 Ordered Transfer/Admit Order [TRANSFER] Routine Transfer 06/07/19 02:08 Completed Result Diagrams: 06/06/19 20:51 06/06/19 20:51 - EKG 1 Time of EKG reading by physician:: 20:22 EKG Read and Signed by:: Dianne Sheridan EKG Interpretation (*Must complete 3 of following elements*): Abnormal (possible) Rate: 65 Rhythm: Sinus rhythm with 1st degree AV block [place]: left (deviation) QRS: RBB (incomplete) CO Interval: normal ST Wave: normal Prior EKG Comparison: changes noted Comments: no sign changes except for 1st AV block compared to 05/16/19, no stemi - CONSULTS/PCP/HOSPITALIST Notification #1 *Consult/PCP/Hospitalist*: d/w Dr Plata Time Discussed: 22:55 Consult Disposition: Admit Departure - Departure Date of Disposition Decision: 06/06/19 Time of Disposition Decision: 22:55 DIAGNOSIS: Paroxysmal supraventricular tachycardia, Chest pain Disposition: ADMITTED INPATIENT 09 Certified Medical Emergency: Emergent Condition: Stable - Critical Care Note This patient required my direct & personal management of CC.: No Attestation - Physician/ [place] Attestation Patient care was provided by Advanced Practice Provider:: No The physician spent face to face time with patient:: Yes Advanced Practice Provider documentation review:: Supervising physician onsite and consulted in the evaluation and care of this patient. The physician did have a face to face encounter with the patient. This chart was documented by the indicated scribe, (Araceli Jensen Scribe) and accurately reflects the services I performed and decisions made by me, Dianne Sheridan MD, as attested by the provider's signature.
[2019-06-06] MEDS ORDERED: TYLENOL PO PRN (23:22)
[2019-06-06] MEDS ORDERED: ZOFRAN IV PRN (23:22)
[2019-06-06] MEDS ORDERED: SIMETH PO PRN (23:25)
[2019-06-06] MEDS ORDERED: DULCOLAX PO PRN (23:25)
[2019-06-06] MEDS ORDERED: ALUMINUM HYD PO PRN (23:25)
[2019-06-06] MEDS ORDERED: PHENERGAN PO PRN (23:25)
[2019-06-06] MEDS ORDERED: MAG HYDROX PO PRN (23:25)
[2019-06-06] MEDS ORDERED: [UNRECOGNIZED DRUG - OTHER] PO PRN (23:25)
[2019-06-07] MEDS ORDERED: SYNTHROID PO SCH (07:00)
[2019-06-07] MEDS ORDERED: PRILOSEC PO SCH (07:00)
--- NOTE | 2019-06-07 07:09 | HISTORY AND PHYSICAL ---
PRIMARY CARE PROVIDER: Dr. Taz Sweeney. CHIEF COMPLAINT: Fast heart rate. HISTORY OF PRESENT ILLNESS: Ms Varma is an 84-year-old female who carries a past medical history of PSVT, hypertension, cystitis, GERD, chronic back pain, who reports this is her 3rd trip to the ED for PSVT. She reported she had an episode 2 weeks ago where her heart rate was in the 230. She was able to take Mylanta, 3 aspirin, a 2nd dose of her metoprolol and do some Valsalva maneuvers to relieve it. She feels tonight she ate too much supper that brought on her tachycardia. She again did the same regimen, but it did not work. She then experienced some pain in her throat, heaviness on the right side of her chest. She called EMS. They gave her 6 mg of adenosine and some Zofran and she is currently sinus bradycardic and her pain in her throat and the right side heaviness in her chest has also subsided. She really wanted to not be admitted to the hospital, but has reluctantly agreed to stay to be evaluated by Cardiology. Workup in the ED shows a creatinine of 1.4, troponin 131, and a proBNP of 1335, chest x-ray that is normal. We will admit her to PVC, monitor on telemetry with a Cardiology consult. We will repeat an echocardiogram in the a.m. and continue to trend her cardiac enzymes. PAST MEDICAL HISTORY: 1. PSVT. 2. Hypertension. 3. Gastroesophageal reflux disease. 4. Cystitis. 5. Chronic back pain. PAST SURGICAL HISTORY: Left knee replacement, hysterectomy, hiatal hernia surgery, appendectomy [address] Bryant. HOME MEDICATIONS: Toprol-XL with parameters if her blood pressure is greater than 100, aspirin, Dulcolax, Colace, [place], multivitamin, Macrodantin, Prilosec, potassium, [*] ALLERGIES: To amlodipine, diazepam, doxycycline, Cymbalta, sulfa antibiotics, and Cipro. SOCIAL HISTORY: She is . No tobacco, alcohol or illicit drug use. Daughter is at bedside. FAMILY HISTORY: Reviewed and noncontributory. REVIEW OF SYSTEMS: Complete and negative except for those mentioned in HPI. PHYSICAL EXAMINATION: VITAL SIGNS: Temperature is 97.3 degrees, heart rate 51, respirations 18, blood pressure 153/78, O2 is 95% on room air. GENERAL: Ms. Mcgraw is a pleasant 84-year-old female who is sitting up in the bed in no acute distress. HEENT: Atraumatic, normocephalic. PERRL. NECK: Supple. Trachea midline. CARDIOVASCULAR: S1, S2 appreciated. No murmurs, gallops, rubs noted. RESPIRATORY: Lung sounds clear bilaterally. ABDOMEN: Soft, nontender, nondistended. Positive bowel sounds 4 quadrants. LOWER EXTREMITIES: No edema noted. NEUROLOGIC: No focal deficits noted. She is alert and oriented x4. Answers all questions appropriately. DIAGNOSTIC DATA: Chest x-ray, no evidence of acute pathology. EKG pending. LABORATORY DATA: White count 6, hemoglobin and hematocrit 13 and 40, platelet count is 137,000. D-dimer 0.38. Sodium 140, potassium 4.7, BUN 25, creatinine 1.4, blood glucose is 127. Mag 2.3. Troponin 31, CK 26. ProBNP 1335. Urinalysis is negative. ASSESSMENT AND PLAN: 1. Paroxysmal supraventricular tachycardia, resolved with a dose of adenosine. The patient had a prior episode 2 weeks ago that she was able to resolve with medications and Valsalva maneuvers at home. She reports at least another 2 times she has had to come to the ED and been given adenosine but refused admissions at those times. She did follow up with a film inspector once, she could not remember the name. We will recheck an echocardiogram in the a.m., monitor her closely on PVC on telemetry. Consult Cardiology and await their recommendations. She is now sinus bradycardia in the 50s after an extra dose of metoprolol and 6 mg adenosine by EMS. Continue to trend her cardiac enzymes. Recheck a proBNP in the a.m. 2. Acute kidney injury on chronic kidney disease. We will recheck her kidney function in the a.m. 3. Hypertension, stable. 4. Chronic back pain. We will continue her home [place]. 5. Gastroesophageal reflux disease. We will continue home medications. She does take Prilosec and Phenergan at bedtime for her gastroesophageal reflux disease. 6. Cystitis. 7. Recent appendectomy [address] Ethan Bryant. Further recommendations to follow physician evaluation, laboratory and diagnostic data. Dictated by ANGEL Ragland for Gregg Plata MD cc: MD Dru Childs MD David Francis, MD
--- NOTE | 2019-06-07 07:25 | EKG Report ---
Test Performed on : 06/06/2019 8:22:32 PM Test Reason : CP Blood Pressure : / mmHG Vent. Rate : 065 BPM Atrial Rate : 065 BPM P-R Int : 230 ms QRS Dur : 118 ms QT Int : 414 ms P-R-T Axes : 056 -40 025 degrees QTc Int : 430 ms Sinus rhythm. with 1st degree AV block. Left axis deviation Incomplete right bundle branch block Possible Lateral infarct (cited on or before 16-MAY-2019) Abnormal ECG When compared with ECG of 16-MAY-2019 18:17, (Unconfirmed) ND interval has increased T wave inversion no longer evident in Anterior leads QT has shortened Unconfirmed Result
[2019-06-07 07:59] LABS: ALB/GLOB RATIO 1.5; ALBUMIN 3.8 g/dL (3.5-5.0); CALCIUM 9.4 mg/dL (8.8-10.2); CREATININE 1.3 mg/dL (0.5-0.9); POTASSIUM 4.4 mmol/L (3.5-5.1); TOTAL BILIRUBIN 0.56 mg/dL (0.20-1.00); TOTAL PROTEIN 6.4 g/dL (6.3-8.3)
[2019-06-07] MEDS: NORCO-5 PO PRN ×2 (08:04→17:41)
[2019-06-07] MEDS ORDERED: MAGNESIUM AMINO ACID CHELATE PO SCH (09:00)
[2019-06-07] MEDS ORDERED: CENTRUM SILVER PO SCH (09:00)
[2019-06-07] MEDS ORDERED: ELIQUIS PO SCH (11:15)
--- NOTE | 2019-06-07 11:24 | CARDIOLOGY CONSULTATION ---
DATE: 06/07/2019 SUBJECTIVE: Ms. Mcgraw is an 84-year-old, lady who has a history of tachycardia, hypertension, cystitis, gastroesophageal reflux disease. Underwent an appendectomy recently, last year. When she got home, she had an episode of palpitations which was significant. However, she did vagal maneuvers and took aspirin and her beta-blockers, and that episode subsided. Prior to this, she had another episode couple of years back. She comes with again having episodes of palpitations associated with tightness in her throat and chest heaviness. Came to the emergency room. She was given 6 mg of the adenosine and she subsequently went into normal sinus rhythm. She has otherwise been asymptomatic. REVIEW OF SYSTEMS: A 14-point review of systems was done. GI System: There is no history of nausea, vomiting, diarrhea. There is no history of hematemesis or melena. Central Nervous System: No focal weakness to suggest a CVA or TIA. System: There is no dysuria or hematuria. PAST MEDICAL HISTORY: 1. Tachycardia in the past. 2. Hypertension. 3. Gastroesophageal reflux disease. 4. Cystitis. 5. Chronic pain. 6. She has also had a syndrome of severe weakness following a cruise 15 years ago. She was evaluated at [facility] for the same, given her symptoms at that time of having severe lower extremity weakness. As a result, she uses a walker. OTHER SURGERIES: Left knee replacement, hysterectomy, hiatal hernia, appendectomy. ALLERGIES: She is allergic to Valium, Norvasc, Cymbalta, Ultram, Biaxin, Tequin. PHYSICAL EXAMINATION: Vital Signs: Blood pressure was 130/80. Cardiovascular System: Normal jugular venous pressure. There was no thyromegaly. There was no carotid bruit. First and second heart sounds were heard. There is no S3, S4, or gallop. Respiratory System: Normal air entry. There are no crepitations or rhonchi. Abdomen was soft, nontender. There was no guarding or rigidity. Bowel sounds were heard. Central Nervous System: Alert and was moving all 4 extremities. Examination of extremities revealed no pedal edema. HEENT: Atraumatic, normocephalic. Pupils were equal and reacting to light. ASSESSMENT AND PLAN: Ms. Meena Mcgraw is an 84-year-old, lady who has a history of gastroesophageal reflux disease, hypertension, tachycardia in the past. Had two episodes of tachycardia. Came to the emergency room. Was given adenosine, subsequently in sinus rhythm. She also had chest pain associated with these symptoms. RECOMMENDATIONS: 1. We will get an echocardiogram to assess cardiac and valvular function. We will set her up to undergo a Cardiolite stress test to assess for and rule out ischemia. 2. Her electrocardiogram revealed a baseline right bundle branch block which looks like atrial flutter. However this responded to Adenosine and is SVT and not atrial flutter. We will plan for 30 day event monitor as OP. we will continue with Aspirin 3. If her stress test is normal, she can be discharged home today. 4. 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 She has symptoms of weakness of lower extremities. She was evaluated for this at [facility] about 10 years back Thank you for the consult. We will follow hospital course. cc: Michael Bedoya MD MTDD
[2019-06-07] MEDS ORDERED: LEXISCAN ONE (15:02)
--- NOTE | 2019-06-07 15:53 | ECHO REPORT ---
ORDER DATE: 06/07/2019 INTERPRETING PHYSICIAN: Miles Gaviria MD. CLINICAL INDICATIONS: Hypertension. PSVT. Chest heaviness. M-MODE MEASUREMENTS: Left ventricle end diastole: 5.3 cm. Left ventricle end systole: 3.4 cm. Posterior wall: 0.8 cm. Interventricular septum: 0.8 cm. Left atrium: 4.0 cm. Aortic diameter: 3.9 cm. SUMMARY OF 2-DIMENSIONAL IMAGIN. The left ventricular function is normal, ejection fraction of 68%. No wall motion abnormality noted. 2. The right-sided chambers and atria appear to be normal. 3. The mitral valve shows mild degree of regurgitation. 4. The pulse wave Doppler of mitral inflow is mildly reversed. Ratio is 0.7. 5. Tissue Doppler of septal and lateral mitral annulus averages 7 cm. 6. The aortic valve opens normally. Color flow mapping indicates a mild degree of regurgitation. There is no stenosis. 7. Tricuspid valve shows mild degree of regurgitation. 8. Pulmonary pressure is estimated at 43 mmHg. 9. There is a question of a tiny jet at the level of the basal interventricular septum from left to right raising concern for a tiny ventricular septal defect. It is really not very well visualized. 10.The pulmonic valve shows a mild degree of regurgitation. 11.There is no pericardial effusion. I do not see evidence of masses or thrombus. 12.The inferior vena cava appears to be at the upper limits of normal. However, it shows normal respiratory variation. CONCLUSIONS: In summary, the study shows 1. Normal left ventricular systolic function. 2. Mild degree of aortic regurgitation and mild degree of mitral regurgitation. 3. No diastolic dysfunction. 4. Pulmonary pressure is estimated at 38 to 43 mmHg. 5. Mild degree of pulmonic regurgitation and tricuspid regurgitation with a question of a tiny ventricular septal defect although it is not convincing in all the views. 6. The pulmonary venous flow shows normal pattern. Clinical correlation recommended. cc: Miles Gaviria MD
[2019-06-07 16:21] VITALS: BP 147/54
--- NOTE | 2019-06-07 17:20 | Diag Imaging Result Document ---
PROCEDURE NAME: MYOCARDIAL PERF SCAN, STR/REST - 06/07/2019 STUDY: Rest/stress Lexiscan myocardial perfusion study. INDICATION: Patient with dyspnea and atrial flutter. Coronary heart disease is suspected. DESCRIPTION: The patient came into the nuclear lab and received a rest injection of technetium 99m sestamibi 10.4 mCi. Multiple tomographic views of the cardiac structures were obtained at rest. Subsequently, the patient underwent infusion of Lexiscan 0.4 mg. At peak infusion she was injected with technetium 99m sestamibi 35.1 mCi. Multiple tomographic views of the cardiac structures were obtained following the completion of the exercise protocol. SUMMARY OF THE ELECTROCARDIOGRAPHIC PORTION OF THE STUDY: Resting ECG shows a normal rhythm. Rate is 57 beats per minute. Resting blood pressure is 178/83. Resting ECG shows a right bundle branch block and a left anterior fascicular block. LVH is noted. During the protocol the heart rate increased to a maximum of 91 beats per minute, blood pressure went down to 140/70. The patient reported no chest pain, shortness of breath, and palpitations. The ECG showed no ischemic changes. Following the completion of the test heart rate and blood pressure returned back to their baseline. In summary, electrocardiographic response to an infusion of Lexiscan is normal. SUMMARY OF THE MYOCARDIAL PERFUSION PORTION OF THE STUDY: Poststress tomographic views of the left ventricle showed normal homogeneous distribution of the radiotracer throughout the entire left ventricular myocardium. There is no evidence of any postexercise defect. The rest images show normal perfusion. Polar plots revealed the same. There is no evidence of neither inducible ischemia nor a myocardial scar. Gated SPECT shows normal left ventricular systolic function. The ejection fraction is 72% with normal ventricular volumes and no wall motion abnormality. The lung/heart ratio is normal. TID is normal. CONCLUSION: In summary, this study shows: 1. Normal electrocardiographic response to an infusion of Lexiscan. 2. Normal poststress myocardial perfusion scan. There is no scintigraphic evidence of pharmacologically-induced myocardial ischemia. 3. Normal left ventricular systolic function. Ejection fraction is estimated at 72% with normal ventricular volumes and no wall motion abnormality. This study represents a low risk for ischemic events. Clinical correlation is recommended. cc: MD Mara Romero PA
[2019-06-07] MEDS ORDERED: PATIENT'S OWN MED PO SCH (21:00)
[2019-06-07] MEDS ORDERED: TOPROL XL PO SCH (21:00)
[2019-06-07] MEDS ORDERED: ASPIRIN PO SCH (21:00)
--- NOTE | 2019-06-07 21:02 | PROGRESS NOTE ---
DATE: 06/07/2019 SUBJECTIVE: I have seen and examined Ms. Mcgarw today. Ms. Mcgraw is an 84-year-old, female, with a history of paroxysmal SVT, on metoprolol, which seems to have been controlled. However, she said early on the day of admission, her heart rate went somewhere around 230, was brought in to the emergency room where she was evaluated and admitted. This morning, she has been evaluated by Cardiology. They have done echo and stress test, and they advised that if those tests are normal, she can be discharged to follow up with them with 30-day Holter monitoring. OBJECTIVE: Current vitals: Blood pressure is 147/57, pulse of 73, respirations 16, temperature is 99.0 degrees. Physical exam for most part is unremarkable. LABORATORY AND DIAGNOSTIC DATA: Also have been reviewed. Creatinine is 1.3, which seems to be patient's baseline. Patient's echocardiogram shows an ejection fraction of 68%, no wall motion abnormality. Stress test is still pending. ASSESSMENT: 1. Paroxysmal supraventricular tachycardia. This seems to have resolved. Patient was given a dose of adenosine in the emergency department. She continues to be in sinus and she has been started back on her metoprolol. 2. Acute on chronic renal failure. Improved. Patient's creatinine is down to 1.3, which seems to be her baseline. 3. Hypertension. Controlled. 4. Recent appendectomy about [address] Bryant. PLAN: In general, I think Ms. Mcgraw is doing well. Her heart rate is back to normal. She seems completely asymptomatic. Echocardiogram is unremarkable. However, there is a mention of possible tiny VSD, although it is not convincing in all views. We are pending the stress test. If that is also normal, we will potentially be able to discharge Ms. Mcgraw to follow up with Cardiology. They have already recommended that she would have a 30-day Holter monitor. cc: Mohit Ojeda MD
[2019-06-08] MEDS ORDERED: ASPIRIN PO SCH (09:00)
--- NOTE | 2019-06-08 21:58 | DISCHARGE SUMMARY ---
ADMISSION DATE: 06/07/2019 DISCHARGE DATE: 06/07/2019 DISPOSITION: Home. FOLLOW-UP: Dr. Bedoya. INVASIVE PROCEDURES DONE DURING THIS ADMISSION: None. IMAGING STUDIES OF SIGNIFICANCE: A chest x-ray showed no evidence of acute pathology. Echocardiogram did show an ejection fraction of 68, no wall motion abnormality. No major valve abnormality. There was a suggestion of possible tiny ventricular septal defect. Myocardial perfusion scan showed no scintigraphic evidence of pharmacologically induced myocardial ischemia. ADMISSION DIAGNOSIS: 1. Paroxysmal SVT. 2. Acute on chronic kidney injury. 3. Hypertension. DIAGNOSIS AT THE TIME OF DISCHARGE: 1. Symptomatic paroxysmal SVT. 2. Acute on chronic renal failure. 3. Hypertension. 4. Recent appendectomy. 5. History of gout. 6. Hypothyroidism. DISCHARGE MEDICATIONS: 1. Doland 5 p.o. 3 times per day p.r.n. 2. Omeprazole 20 mg p.o. daily. 3. Aspirin 81 mg p.o. at bedtime. 4. Christine 10 mg p.o. p.r.n. 5. Metoprolol 25 mg p.o. at bedtime. 6. Potassium 200 mg p.o. at bedtime. 7. Levothyroxine 75 mcg p.o. daily. 8. Phenergan 25 mg p.o. p.r.n. PRESENTING COMPLAINT: Fast heart rate. HISTORY OF PRESENTING COMPLAINT: Ms. Mcgraw is an 84-year-old female who is known to have paroxysmal supraventricular tachycardia, has been placed on metoprolol and follows up with a bottom scrubber in [place], presented to the emergency room because she said her heart rate went to about 230. Upon presenting, she was given a dose of adenosine which improved and was subsequently admitted for further medical care. Ms. Mcgraw was seen also by Cardiology. Dr. Bedoya did a stress test to rule out any ischemic cause. Stress test came back negative. Echocardiogram came back negative. Ms. Mcgraw's heart rate remained stable and under control. It was felt that she was stable enough to be discharged per Cardiology and that they would arrange for a 30 day heart monitor for Ms. Mcgraw when outpatient and they will follow her up accordingly. Ms. Mcgraw was in stable condition to be discharged. At the time of the discharge, her blood pressure 147/54, pulse of 73, respirations 16, temperature is 99.0 degrees. All the discharge instructions were discussed with her including the follow up with Cardiology for the 30 day heart monitor. The niece was at the bedside at the time of this encounter. Time spent for discharge is 38 minutes. cc: MD Michael Patel MD
== END 2019-06-07 18:12 | disposition home or self-care (01) ==
LOC: 2N 19:59 → ED 19:59 → SUATTDRO 06-07 02:11
PROVIDERS: ATTEND Internal Medicine

== ENCOUNTER 2019-07-05 19:58 | Inpatient (IN) ==
[2019-07-05] MEDS ORDERED: ADENOCARD ONE (20:18)
[2019-07-05] MEDS ORDERED: NS 1,000 ML ONE (20:20)
[2019-07-05] MEDS ORDERED: ADENOCARD IV ONE (20:23)
[2019-07-05 20:31] LABS: BASO# 0.05 X1000 (0.0-0.2); BASO% 0.7 % (0.0-0.8); EOS# 0.14 X1000 (0.0-0.7); HEMATOCRIT 43.4 % (37.0-47.0); HEMOGLOBIN 14.2 g/dL (12.0-16.0); LYMPH# 1.63 X1000 (1.2-3.4); LYMPH% 23.8 % (20.5-51.1); MCH 31.8 PG (27-31); MCHC 32.7 g/dL (33-37); MCV 97.1 FL (81-99); MONO# 0.68 X1000 (0.11-0.59); MONO% 9.9 % (1.7-9.3); MPV 11.1 FL (7.4-10.4); NEUT# 4.35 X1000 (1.4-6.5); NEUT% 63.6 % (42.2-75.2); PLT 203 X1000 (130-400); RBC 4.47 XMIL (4.2-5.4); RDW 13.6 % (11.5-14.5); WBC 6.85 X1000 (4.8-10.8)
[2019-07-05 20:39] LABS: INR 0.94; PROTIME 12.6 Seconds (11.0-16.0)
[2019-07-05 20:40] LABS: PTT 27.7 Seconds (22.3-41.8)
[2019-07-05 21:11] LABS: ALBUMIN 4.7 g/dL (3.5-5.0); CALCIUM 9.7 mg/dL (8.8-10.2); CREATININE 1.5 mg/dL (0.5-0.9); POTASSIUM 4.7 mmol/L (3.5-5.1); TOTAL BILIRUBIN 0.74 mg/dL (0.20-1.00)
[2019-07-05] MEDS ORDERED: DILAUDID IV ONE (21:11)
[2019-07-05] MEDS ORDERED: BENADRYL IV ONE (21:11)
[2019-07-05] MEDS ORDERED: ZOFRAN IV ONE (21:11)
--- NOTE | 2019-07-05 21:13 | Diag Imaging Result Doc PS360 ---
CHEST-1 VIEW - 07/05/2019 INDICATION: CP COMPARISON: 06/06/2019 FINDINGS: The lungs are normally expanded and clear. Heart size and mediastinal contours are normal. No pneumothorax or pleural effusion. IMPRESSION: Negative exam. Electronically signed by Prashant Kelsey 07/05/2019 9:11 PM
[2019-07-05 21:48] LABS: URINE SOURCE CLEAN CATCH
[2019-07-05 22:22] LABS: BILIRUBIN URINE NEGATIVE (NEGATIVE); BLOOD URINE NEGATIVE (NEGATIVE); COLOR YELLOW; GLUCOSE URINE NEGATIVE (NEGATIVE); KETONE URINE NEGATIVE (NEGATIVE); LEUKOCYTES URINE NEGATIVE (NEGATIVE); NITRITE URINE POSITIVE (NEGATIVE); PH URINE 6.5; PROTEIN URINE NEGATIVE (NEGATIVE); SP GRAVITY URINE 1.008; TURBIDITY URINE CLEAR (CLEAR); UR EPITHELIAL CELLS <10 /HPF (<10); URINE BACTERIA NEGATIVE /HPF; URINE RBC <10 /HPF (<10); URINE WBC <10 /HPF (<10); UROBILINOGEN URINE 2 mg/dL (NORMAL)
[2019-07-06] MEDS ORDERED: TYLENOL PO PRN (00:19)
[2019-07-06] MEDS ORDERED: MORPHINE IV PRN (00:19)
[2019-07-06] MEDS ORDERED: PYRIDIUM PO PRN (00:19)
[2019-07-06] MEDS ORDERED: ZOFRAN IV PRN (00:19)
--- NOTE | 2019-07-06 00:49 | EKG Report ---
Test Performed on : 07/05/2019 8:06:17 PM Test Reason : psvt Blood Pressure : / mmHG Vent. Rate : 187 BPM Atrial Rate : 192 BPM P-R Int : 000 ms QRS Dur : 104 ms QT Int : 278 ms P-R-T Axes : 000 -65 038 degrees QTc Int : 490 ms Probable Supraventricular tachycardia. Incomplete right bundle branch block Left anterior fascicular block Possible Lateral infarct (cited on or before 16-MAY-2019) Abnormal ECG When compared with ECG of 06-JUN-2019 20:22, (Unconfirmed) Significant changes have occurred Confirmed by Tyrone Gagnon MD ([id number]) on 07/08/2019 12:19:11 PM
[2019-07-06 03:52] LABS: ALB/GLOB RATIO 1.4; ALBUMIN 3.4 g/dL (3.5-5.0); CALCIUM 8.3 mg/dL (8.8-10.2); CREATININE 1.1 mg/dL (0.5-0.9); MAGNESIUM 1.9 mg/dL (1.5-2.7); POTASSIUM 4.2 mmol/L (3.5-5.1); TOTAL BILIRUBIN 0.64 mg/dL (0.20-1.00); TOTAL PROTEIN 5.9 g/dL (6.3-8.3)
[2019-07-06 03:55] LABS: BASO# 0.03 X1000 (0.0-0.2); BASO% 0.5 % (0.0-0.8); EOS# 0.16 X1000 (0.0-0.7); EOS% 2.9 % (0.0-10.0); HEMATOCRIT 34.8 % (37.0-47.0); HEMOGLOBIN 11.3 g/dL (12.0-16.0); LYMPH# 1.52 X1000 (1.2-3.4); LYMPH% 27.4 % (20.5-51.1); MCHC 32.5 g/dL (33-37); MCV 98.6 FL (81-99); MONO# 0.48 X1000 (0.11-0.59); MONO% 8.6 % (1.7-9.3); MPV 10.7 FL (7.4-10.4); NEUT# 3.36 X1000 (1.4-6.5); NEUT% 60.6 % (42.2-75.2); PLT 143 X1000 (130-400); RBC 3.53 XMIL (4.2-5.4); RDW 13.6 % (11.5-14.5); WBC 5.55 X1000 (4.8-10.8)
--- NOTE | 2019-07-06 05:17 | HISTORY AND PHYSICAL ---
PRIMARY CARE PROVIDER: Lamont Hoffman MD. HULL SORTER: Michael Bedoya MD. UROLOGIST: Weston Walker MD. CHIEF COMPLAINT: Heart racing, chest heaviness, left tonsillar pain. HISTORY OF PRESENT ILLNESS: Ms Mcgraw is an 84-year-old female with known paroxysmal SVT/atrial fibrillation, chronic cystitis, chronic urinary tract infections, hypothyroidism, acute on chronic renal failure, hypertension, gout, recently discharged from our service on June 07, and was sent home on an event monitor. She reported on and off all day she could feel her heart rate increasing. However, it would subside around 1829. She felt her heart rate again getting out of control. She felt chest heaviness, left tonsillar pain and a hot flash. She took her heart rate, it was anywhere from 180 to 190 with blood pressures 130s/80s, which she reports is high for her. She reported she was also having pain from her cystitis. She tried Valsalva maneuvers, went ahead and took some metoprolol that she had been taken off, and three 81 mg aspirins. Her niece brought her into the ED to be evaluated. She was given a dose of adenosine for her heart rate. She is currently sinus bradycardia in the 50s. She was also given Benadryl, Dilaudid and Zofran for her cystitis pain. We will admit her on observation status to P[facility] and monitor her telemetry closely. PAST MEDICAL HISTORY: 1. Paroxysmal SVT. 2. Acute on chronic renal failure. 3. Hypertension. 4. Gout. 5. Hypothyroidism. PAST SURGICAL HISTORY: Left knee replacement, hysterectomy, hiatal hernia surgery, appendectomy. MEDICATIONS: Home medications are being compiled. She states she was taken off her home metoprolol though and is not on any rate control medications, and is taking Keflex for a recent UTI. ALLERGIES: Amlodipine, diazepam, doxycycline, Cymbalta, sulfa antibiotics, and Cipro. SOCIAL HISTORY: She is . 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 No tobacco, alcohol or illicit drug use. Niece is at bedside. FAMILY HISTORY: Reviewed, noncontributory. REVIEW OF SYSTEMS: Completely negative except for those mentioned in HPI. She does report that this chest heaviness and left tonsillar pain subsided. PHYSICAL EXAMINATION: VITAL SIGNS: Temperature 98.1 degrees, heart rate 54, respirations 18, blood pressure 139/69, O2 saturation 98% on room air. GENERAL: Mrs. Mcgraw is a pleasant 84-year-old female who is sitting in the stretcher in the ED, in no acute distress. HEENT: Atraumatic, normocephalic. PERRL. NECK: Supple. Trachea midline. CARDIOVASCULAR: S1, S2 appreciated. No murmurs, gallops, or rubs noted. RESPIRATORY: Lung sounds clear bilaterally. ABDOMEN: Soft, nontender, nondistended. Positive bowel sounds 4 quadrants. EXTREMITIES: Lower extremities negative for edema. NEUROLOGIC: No focal deficits noted. DIAGNOSTIC DATA: Initial EKG shows supraventricular tachycardia with an incomplete right bundle branch block at 187 beats per minute. Chest x-ray, negative exam. LABORATORY DATA: White count 6, hemoglobin and hematocrit 14 and 43, platelet count is 203,000. Sodium 141, potassium 4.7, BUN 22, creatinine 1.5. Blood glucose is 178, magnesium 2.1. Troponin 26. Plasma lactates are negative. Urinalysis is positive for nitrates, but negative for bacteria. ASSESSMENT CURRENT PLAN: 1. Supraventricular tachycardia. The patient has been on a cardiac event monitor. She reports she was taken off all her antiarrhythmics; however, she did take a 25 mg dose of her metoprolol as well as three 81 mg aspirin. Tried some Valsalva maneuvers, was given a dose of adenosine in the ED, which converted her to sinus bradycardia. We will consult Dr. Bedoya. She just recently had an echo as well as stress test. 2. Chronic cystitis. We will continue on her home Keflex and Pyridium p.r.n., as well as pain medicine. 3. Acute on chronic renal failure. 4. Hypertension. 5. Gout. 6. Hypothyroidism. Continue Synthroid. 7. Further recommendation to follow physician evaluation, laboratory and diagnostic data. Dictated by ANGEL Ragland for Gregg Plata MD I have performed a face to face diagnostic evaluation. Labs/xrays- reviewed. Exam- Chest- clear, CV- regular, Abd- soft. A/P- SVT- Admit, Metoprolol, monitor on telemetry, cardiology consult. Dr. Plata cc: Gregg Plata MD [facility]
--- NOTE | 2019-07-06 06:44 | EKG Report ---
Test Performed on : 07/05/2019 8:22:01 PM Test Reason : ED. NO EKG ORDER FOR MUSE Blood Pressure : / mmHG Vent. Rate : 092 BPM Atrial Rate : 092 BPM P-R Int : 216 ms QRS Dur : 114 ms QT Int : 372 ms P-R-T Axes : 026 -49 035 degrees QTc Int : 460 ms Sinus rhythm. with 1st degree AV block. Incomplete right bundle branch block Left anterior fascicular block Abnormal ECG When compared with ECG of 05-JUL-2019 20:06, (Unconfirmed) DE interval has increased Vent. rate has decreased BY 95 BPM Borderline criteria for Lateral infarct are no longer present ST no longer depressed in Inferior leads ST no longer depressed in Anterior leads Unconfirmed Result
--- NOTE | 2019-07-06 07:44 | Diag Imaging Result Doc PS360 ---
CHEST-PORTABLE - 07/06/2019 INDICATION: psvt COMPARISON: 07/05/2019 FINDINGS: The lungs are normally expanded and clear. Heart size and mediastinal contours are normal. No pneumothorax or pleural effusion. IMPRESSION: Negative exam. Electronically signed by Prashant Kelsey 07/06/2019 7:42 AM
[2019-07-06] MEDS ORDERED: NORCO-5 PO PRN (07:46)
[2019-07-06] MEDS ORDERED: DULCOLAX PO PRN (07:46)
[2019-07-06] MEDS: KEFLEX PO SCH ×2 (08:48→14:47)
--- NOTE | 2019-07-06 11:37 | CARDIOLOGY CONSULTATION ---
DATE: 07/06/2019 CHIEF COMPLAINT: Heart racing. HISTORY OF PRESENT ILLNESS: Ms. Mcgraw is an 84-year-old female with a history of SVT. She was recently admitted to the hospital and had full evaluations including nuclear scanning and echocardiogram. This showed intact perfusion. No significant abnormalities identified on the echo. She had a normal ejection fraction. Yesterday evening she was in her usual state of health at rest sitting down when she had the onset of heart racing. She checked her heart rate and it was greater than 150. She presented to the ER and was found to be in what looked like a re- entrant tachycardia with a rate of 187 beats per minute. This converted with Adenosine. Apparently she has already been arranged for followup with electrophysiology. PAST MEDICAL HISTORY: 1. Significant for PSVT. 2. Hypertension. 3. Reflux disease. 4. Chronic cystitis. 5. Chronic pain. SOCIAL HISTORY: She does not presently smoke. She is . 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 FAMILY HISTORY: Hypertension. REVIEW OF SYSTEMS: A 10-system review of systems is negative except for those mentioned HPI. PHYSICAL EXAMINATION: Vitals: Afebrile. Heart rates have been predominantly anywhere from the 40s to 80s. Blood pressure most recently is 126/56. General: She is in no acute distress. HEENT: Oropharynx is moist. Poor dentition. Eye examination with pink conjunctivae, white sclerae. Neck: Examination shows no obvious thyromegaly or thyroid tenderness. Cardiovascular: She sounds to be in a regular rate and rhythm. She has no obvious murmurs. She has no S3. She has no lower extremity edema. Chest: Clear bilaterally. She has no increased work of breathing. Abdomen: Soft, nontender, nondistended. She has no obvious organomegaly. Skin: Warm and dry throughout without any rashes. Neurological: She is moving all extremities well. She has no lateralizing deficits. PERTINENT DATA: EKG reviewed by me shows sinus rhythm at 8:22 p.m. yesterday. She has a first- degree AV block and what appears to be an incomplete right bundle. Her subsequent EKG occurring on the at 6:57 shows sinus bradycardia at 49 beats per minute, first-degree AV block. Her EKG occurring on the at 2006 shows a rapid SVT, rate of 187 beats per minute. Her chest x-ray demonstrates an unremarkable examination. LABORATORY DATA: White count 5.5, hematocrit 34, platelet count is 143,000. Sodium 141, potassium 4.2, BUN 21, creatinine is 1.1. Her cardiac enzymes are minimally elevated running anywhere from 26 to 50. Her TSH was 1.46 on the 13th of last month. ASSESSMENT: Ms. Mcgraw is an 84-year-old female who presented with PSVT. PLAN: At this point, I will add in flecainide 50 mg once daily. She has a somewhat bradycardic baseline rhythm. She had a SVT that converted with adenosine. At this point, she already has followup arranged with the EP. I would not make any further adjustments at this point. From my standpoint, she can be discharged when safe from a primary team standpoint. Please contact us if we can be of further assistance. cc: Dru Kennedy MD
[2019-07-06 15:22] VITALS: BP 154/71
[2019-07-06] MEDS ORDERED: TOPROL XL PO SCH ×2 (21:00)
[2019-07-06] MEDS ORDERED: ASPIRIN PO SCH (21:00)
[2019-07-07] MEDS ORDERED: SYNTHROID PO SCH (07:00)
[2019-07-07] MEDS ORDERED: PRILOSEC PO SCH (07:00)
[2019-07-07] MEDS ORDERED: TAMBOCOR PO SCH (09:00)
--- NOTE | 2019-07-08 12:23 | EKG Report ---
Test Performed on : 07/06/2019 06:57:58 AM Test Reason : PSVT Blood Pressure : / mmHG Vent. Rate : 049 BPM Atrial Rate : 049 BPM P-R Int : 232 ms QRS Dur : 122 ms QT Int : 506 ms P-R-T Axes : 079 -52 054 degrees QTc Int : 457 ms Sinus bradycardia. with 1st degree AV block. with premature atrial complexes. Right bundle branch block Left anterior fascicular block Bifascicular block Septal infarct , age undetermined Abnormal ECG When compared with ECG of 05-JUL-2019 20:22, (Unconfirmed) premature atrial complexes. are now present Vent. rate has decreased BY 43 BPM Septal infarct is now present T wave amplitude has decreased in Lateral leads Confirmed by Tyrone Gagnon MD ([id number]) on 07/08/2019 12:23:01 PM
--- NOTE | 2019-07-08 20:17 | DISCHARGE SUMMARY ---
ADMISSION DATE: 07/05/2019 DISCHARGE DATE: 07/06/2019 HOSPITAL COURSE: Patient with known history of atrial fibrillation/SVT presented with complaints of palpitations. She is found to have a heart rate of over 180. She was given adenosine and went back to sinus bradycardia. After which she remained asymptomatic. She was monitored overnight and seen by Cardiology started her on flecainide. 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 Her other health problems were stable including hypothyroidism, hypertension and gout. She had a very slightly elevated creatinine to 1.5 on admission. On recheck after little bit of fluid and correcting her SVT it was down to 1.1 which is thought to be her baseline CKD 3. FOLLOWUP AND PLAN: Patient discharging home, follow up with PCP and regular fireworks maker now with the addition of flecainide. Her other home medications are unchanged including Synthroid, omeprazole, Phenergan p.r.n., potassium, [place] p.r.n., Dulcolax and aspirin.
== END 2019-07-06 15:57 | disposition home or self-care (01) | DRG 310 ==
LOC: ED 19:58 → 2N 21:59 → SUATTDRO 21:59
PROVIDERS: ATTEND Internal Medicine